=== PATIENT | male | born 1995 | race Caucasian/White ===

== ENCOUNTER 2016-06-14 11:01 | Emergency (ER) | payer OTHER ==
[2016-06-14 11:12] VITALS: RESP 16; TEMP 97.5
--- NOTE | 2016-06-14 12:16 | EDPHY ---
H & P Time Seen by Provider: 06/14/16 11:12 HPI/ROS: This is a 21-year-old male patient presenting to emergency department, reports cutting bread using a serrated clean knife cut left index finger 30 minutes prior to arrival. tetanus up-to-date 2014. moving fingers full range of motion. denies any other complaints REVIEW OF SYSTEMS: Constitutional: No fever no chills Respiratory: no cough Cardiac: no chest pain Gastrointestinal: no nausea vomiting Musculoskeletal: left index finger laceration Skin: no rash Neurological: no headache or dizziness Smoking Status: Never smoked Physical Exam: CONSTITUTIONAL: patient appeared well nourished, non-ill appearing and normally developed. No acute distress. Vital signs as documented. HEENT: Normocephalic atraumatic NECK: . FROM without pain RESP: Non-labored resp effort NEURO: AAOx3 EXTREMITIES: 1.5 cm laceration noted to left lateral aspect of index finger. no tendon involvement or other deep structures. FROM without pain or difficulty. Positive cms intact SKIN: rash. PSYCH: Normal affect, calm, no distress Constitutional: Initial Vital Signs Temperature (C) 36.4 C 06/14/16 11:05 Heart Rate 62 06/14/16 11:05 Respiratory Rate 16 06/14/16 11:05 Blood Pressure 147/90 H 06/14/16 11:05 O2 Sat (%) 94 06/14/16 11:05 O2 Delivery Mode Room Air Allergies/Adverse Reactions: No Known Allergies Allergy (Verified 06/14/16 11:10) Home Medications: Medication Instructions Recorded NK [No Known Home Meds] 06/14/16 Medical Decision Making Procedures: Procedure: Laceration repair. Verbal consent was obtained from the patient 1.5cm laceration on the medial aspect of left index finger. 0.5% bupivacaine 3 mL digital block. The wound was irrigated. There were no deep structures involved. The wound was repaired 5 -0 Prolene # 5 sutures placed The procedure was performed by myself. A dressing was applied by our tech. ED Course/Re-evaluation: I discussed course of care with patient, digital block, wound irrigation, and sutures. dressing placed, full range of motion noted and CMS intact. he also discussed with the patient keeping the wound covered while he is at work to reduce chances of infection. also monitor for any signs and symptoms of infection. have sutures removed in 7-10 days. discharge home---> stable. Differential Diagnosis: differential diagnosis considered but not limited to tendon laceration, open fracture and foreign body Departure - Departure Disposition: Home, Routine, Self-Care Clinical Impression: Laceration of finger Qualifiers: Encounter type: initial encounter Qualified Code(s): S61.219A - Laceration without foreign body of unspecified finger without damage to nail, initial encounter Condition: Good Instructions: Care For Your Stitches (ED), Laceration (ED) Additional Instructions: 1. Leave initial dressing on for 24 hours 2. Tomorrow morning you can and use soap and water to wash wound do not pull off the Steri-Strips 3. Have sutures removed in 7-10 days 4. Monitor for any signs symptoms of infection such as: Redness, drainage increased swelling 5. you can take ibuprofen or Tylenol as needed. If any concerns or questions he can call the emergency department Referrals: [facility] [Other] - As per Instructions [facility],. [Clinic] - As per Instructions
[2016-06-14 12:50] VITALS: BP 130/73; PULSE 58; O2SAT 96
== END 2016-06-14 12:49 | disposition home or self-care (01) ==
PROC: 0HQGXZZ Repair Left Hand Skin, External Approach (ICD-10-PCS; principal; 2016-06-14)
DX: S61.211A Laceration without foreign body of left index finger without damage to nail, initial encounter (principal); W26.0XXA Contact with knife, initial encounter; Y92.69 Other specified industrial and construction area as the place of occurrence of the external cause; Y99.0 Civilian activity done for income or pay; Y93.89 Activity, other specified

== ENCOUNTER 2016-08-26 17:48 | Emergency (ER) | payer OTHER ==
[2016-08-26 17:53] VITALS: BP 151/76; PULSE 87; RESP 18; TEMP 98.1; O2SAT 97
--- NOTE | 2016-08-26 18:51 | EDPHY ---
HPI/HX/ROS/PE/MDM Narrative: CHIEF COMPLAINT: Left arm feels weird HPI: The patient is a 21-year-old male with no significant past medical history. He woke this morning with numbness and weakness to his left arm. Patient states that last night he was then at an event and did lift several heavy objects but denies any direct trauma to his neck or arm. He admits to drinking quite heavily and thinks that he did fall asleep on his left arm. He denies any chest pain headache or vision changes. No facial symptoms. No fever. No trauma. Denies neck pain. REVIEW OF SYSTEMS: Aside from elements discussed in the HPI, a comprehensive 10-point review of systems was reviewed and is negative. PMH: None significant. SOCIAL HISTORY: Admits to alcohol use last night. Denies drug abuse. PHYSICAL EXAM: General:Patient is alert, in no acute distress. ENT:Eyes are normal to inspection. ENT inspection normal. Neck: Normal inspection. Full range of motion. Respiratory:No respiratory distress. Breath sounds normal bilaterally. Cardiovascular: Regular rate and rhythm. Strong peripheral pulses. Normal cap refill. Abdomen:The abdomen is nontender to palpation. There are no peritoneal signs. There are normal bowel sounds. Back: Normal to inspection. No tenderness to palpation. Skin: Normal color. No rash. Warm and dry. Extremities: Normal appearance. Full range of motion. No deformity or crepitus. Neuro: Oriented x3. LUE: Essentially no strength to shoulder ABduction or flexion, but patient able to shrug shoulder without difficulty. 4/5 elbow flexion. Subjective numbness over triceps, volar forearm and 1s DWS/thumb. Thumb extension and flexion intact. Wrist extension 3/5. Normal pulses, cap refill and temperature. ED Course: I consulted Dr. Moe Juarez from Neurology at approximately 7:00 p.m.. I discussed the patient's clinical presentation and described physical exam findings as I see them here in the emergency department. Dr. Juarez agrees that the most likely diagnosis is a peripheral nerve compression/palsy and he believes that given the fact that the shoulders involved that this likely means that the axillary nerve has been compressed as well. He does not feel that emergent imaging is necessary and will ensure close follow-up as an outpatient. I had an extensive discussion with the patient regarding his symptoms and my diagnosis of a nerve compression syndrome. I explained to the patient that his presentation is somewhat unusual versus a strict radial nerve palsy given his shoulder findings. The patient states that his symptoms have gotten gradually better over the course of the day and reitrates the fact that he has no symptoms outside of his left upper extremity. I did offer him an MRI of the shoulder/neck, but he has chosen the option of deferring this for now. He promises to return to the emergency department tomorrow should his symptoms worsen or should he fail to improve. Understands that I am unable to rule out any significant disease without further testing. General Time Seen by Provider: 08/26/16 18:28 Initial Vital Signs: Initial Vital Signs Temperature (C) 36.7 C 08/26/16 17:49 Heart Rate 87 08/26/16 17:49 Respiratory Rate 18 08/26/16 17:49 Blood Pressure 151/76 H 08/26/16 17:49 O2 Sat (%) 97 08/26/16 17:49 O2 Delivery Mode Room Air Allergies/Adverse Reactions: No Known Allergies Allergy (Verified 08/26/16 17:48) Home Medications: Medication Instructions Recorded NK [No Known Home Meds] 06/14/16 Departure - Departure Disposition: Home, Routine, Self-Care Clinical Impression: Nerve palsy Condition: Good Instructions: Radial Nerve Palsy (ED) Additional Instructions: Call Neurology tomorrow morning and explain to them that you were seen in the ER and that Dr. Mckinney spoke with Dr. Juarez who will assure close follow-up. Return to the ED immediately for any worsening of condition, failure to improve within 24 hours, or new areas of weakness or numbness. Referrals: NONE *PRIMARY CARE P,. [Primary Care Provider] - As per Instructions
== END 2016-08-26 19:21 | disposition home or self-care (01) ==
DX: G58.9 Mononeuropathy, unspecified (principal)

== ENCOUNTER 2016-09-04 08:20 | Emergency (ER) | payer OTHER ==
[2016-09-04 08:30] VITALS: O2SAT 97
--- NOTE | 2016-09-04 08:48 | EDPHY ---
H & P Time Seen by Provider: 09/04/16 08:33 HPI/ROS: CHIEF COMPLAINT: Left arm pain HISTORY OF PRESENT ILLNESS: This is a 21-year-old male presenting to the emergency department complaining of left arm pain intermittently for 2 weeks. Patient was seen on 08/26/16 for same symptoms and appointment was set up with Dr. Juarez with Neurology patient stated he did not make his appointment. Patient states the reason he came in was he was now starting to have intermittent pain in his biceps and triceps, numbness has improved patient states he is able to now yeast maker items without dropping them. 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 Patient also states he will call and make an appoint with Dr. Juarez on Tuesday, he did request a work excuse for the next couple of days so he can rest his arm. REVIEW OF SYSTEMS: Constitutional: No fever, no chills. Eyes: No discharge. ENT: No sore throat. Cardiovascular: No chest pain, no palpitations. Respiratory: No cough, no shortness of breath. Gastrointestinal: No abdominal pain, no vomiting. Genitourinary: No hematuria. Musculoskeletal: No back pain. Left bicep tricep pain with movement and lifting Skin: No rashes. Neurological: No headache. Smoking Status: Never smoked Physical Exam: General Appearance: Alert, no distress. HEENT: Pupils equal and round no pallor or injection. Mucous membranes moist. Respiratory: There are no retractions, lungs are clear to auscultation. Cardiovascular: Regular rate and rhythm. Gastrointestinal: Abdomen is soft and nontender, no masses, bowel sounds normal. Neurological: No focal deficits. All cranial nerves intact. Patient answering questions appropriately Skin: Warm and dry, no rashes. Musculoskeletal: Neck is supple nontender. Extremities: symmetrical, full range of motion. Equal bilateral yeast maker strength LUE 5/5 RUE 5/5 positive CMS intact Psychiatric: Patient is oriented X 3, patient acting appropriately Constitutional: Initial Vital Signs Temperature (C) 36.9 C 09/04/16 08:27 Heart Rate 75 09/04/16 08:27 Respiratory Rate 15 09/04/16 08:27 Blood Pressure 126/86 H 09/04/16 08:27 O2 Sat (%) 97 09/04/16 08:27 O2 Delivery Mode Room Air Allergies/Adverse Reactions: No Known Allergies Allergy (Verified 08/26/16 17:48) Home Medications: Medication Instructions Recorded NK [No Known Home Meds] 06/14/16 Medical Decision Making ED Course/Re-evaluation: Discussed ED plan of care: Reviewed previous medical records from 08/26/2016, discussed with patient an MRI to rule out any nerve compression or damage patient once again declined the MRI. Discussed calling Dr. Juarez with Urology on Tuesday information given for further evaluation. Discharge home---> stable, discussed discharge instructions with patient Differential Diagnosis: Other differential diagnosis considered but not limited to rotator cuff injury, nerve compression syndrome, and trapezius strain Departure - Departure Disposition: Home, Routine, Self-Care Clinical Impression: Arm pain, chronic Qualifiers: Laterality: left Qualified Code(s): M79.602 - Pain in left arm Condition: Good Instructions: Paresthesia (ED), Arm Pain (ED) Additional Instructions: 1. You need to call Dr. Juarez with neurology on Tuesday for further evaluation since you missed her last appointment 2. Decrease any strenuous activity with left upper extremity just repetitive motion 3. You can also take ibuprofen as needed 600 mg every 6-8 hours Referrals: NONE *PRIMARY CARE P,. [Primary Care Provider] - As per Instructions Moe Juarez MD [Medical Doctor] - As per Instructions [facility],. [Clinic] - As per Instructions Stand Alone Forms: Work Excuse
[2016-09-04 09:04] VITALS: BP 121/80; PULSE 72; RESP 14; TEMP 98.2
== END 2016-09-04 09:03 | disposition home or self-care (01) ==
DX: M79.602 Pain in left arm (principal)